=== PATIENT | male | born 1960 | race Caucasian/White ===

== ENCOUNTER 2017-01-10 14:13 | Inpatient (IN) | payer BC ==
[~2017-01-10] VITALS: Ht 180.3 cm; Wt 93.0 kg
[2017-01-10 14:59] LABS: BASOPHILS % (AUTO) 0.3 % (0.0-2.0); DIFF TOTAL % 100 %; EOSINOPHILS # (AUTO) 0.1 /CMM (0.0-0.7); EOSINOPHILS % (AUTO) 0.8 % (0.0-6.0); HEMATOCRIT 44 % (39-51); HEMOGLOBIN 14.2 g/dL (13.5-17.5); LYMPHOCYTES # (AUTO) 1.4 /CMM (0.8-4.8); LYMPHOCYTES % (AUTO) 13.3 % (20.0-44.0); MEAN CORPUSCULAR HEMOGLOBIN 28 PG (26.0-33.0); MEAN CORPUSCULAR HGB CONC 33 g/dl (31.0-36.0); MEAN CORPUSCULAR VOLUME 85 fL (80-96); MONOCYTES # (AUTO) 0.7 /CMM (0.1-1.30); NEUTROPHILS # (AUTO) 8.5 /CMM (1.8-8.9); NEUTROPHILS % (AUTO) 78.6 % (43.0-81.0); PLATELET COUNT (AUTO) 275 /CMM (150-450); RED BLOOD CELL COUNT(AUTO) 5.12 MIL/uL (4.5-6.0); WHITE BLOOD COUNT (AUTO) 10.7 K/uL (4.3-11.0)
[2017-01-10 15:14] LABS: ANION GAP 14 (5-14); CALCIUM, SERUM 9.1 mg/dL (8.5-10.1); CARBON DIOXIDE 27 mmol/L (21-32); CHLORIDE 101 mmol/L (98-107); CREATININE 1.1 mg/dL (0.6-1.3); GFR 69 mL/min (>60); GLUCOSE 124 mg/dL (74-106); POTASSIUM 4.4 mmol/L (3.5-5.1); SODIUM SERUM 138 mmol/L (136-145); UREA NITROGEN, BLOOD 17 mg/dL (7-18)
[2017-01-10 15:23] LABS: TROPONIN I < 0.017 ng/mL (0.00-0.056)
[2017-01-10 15:27] LABS: ALANINE AMINOTRANSFERASE 37 U/L (12-78); ALBUMIN 3.9 g/dL (3.4-5.0); ASPARTATE AMINOTRANSFERASE 21 U/L (15-37); BILIRUBIN,DIRECT 0.4 mg/dL (0.0-0.2); BILIRUBIN,TOTAL 1.9 mg/dL (0.2-1.0); INDIRECT BILIRUBIN 1.5 mg/dL (0.0-1.1); INR 1.17 (0.87-1.13); PROTHROMBIN TIME 12.3 SECS (9.5-12.7); TOTAL PROTEIN, SERUM 6.5 g/dL (6.4-8.2)
[2017-01-10] MEDS ORDERED: SPIR25TA4 PO (16:04)
[2017-01-10] MEDS ORDERED: CARV12.52 PO (16:04)
[2017-01-10] MEDS ORDERED: LISI10TA5 PO (16:04)
[2017-01-10] MEDS ORDERED: SOTA80TA PO (16:04)
[2017-01-10] MEDS ORDERED: MAGNESIUM HYDROXIDE 30 ML UDC PO PRN (17:30)
[2017-01-10] MEDS ORDERED: ACETAMINOPHEN 325 MG TABLET PO PRN (17:30)
[2017-01-10] MEDS ORDERED: ONDANSETRON HCL/PF 4 MG/2 ML VIAL IVP PRN (17:30)
[2017-01-10] MEDS ORDERED: MAG HYDROX/AL HYDROX/SIMETH 30 ML UDC PO PRN (17:30)
[2017-01-10 17:50] VITALS: BP 103/59
[2017-01-10] MEDS: ENOXAPARIN SODIUM 40 MG/0.4 ML DISP.SYRIN SQ SCH (18:28)
[2017-01-10 20:48] VITALS: BP 89/60
[2017-01-10 22:00] VITALS: BP 89/60
[2017-01-11] VITALS (9 sets, daily range): BP systolic 81–98; BP diastolic 50–84
[2017-01-11 06:51] LABS: CALCIUM, SERUM 8.8 mg/dL (8.5-10.1); CREATININE 1.1 mg/dL (0.6-1.3); PHOSPHORUS 4.6 mg/dL (2.5-4.9); POTASSIUM 4.4 mmol/L (3.5-5.1)
[2017-01-11 07:12] LABS: THYROID STIMULATING HORMONE 5.185 uIU/mL (0.358-3.74)
[2017-01-11 07:30] LABS: BASOPHILS % (AUTO) 0.5 % (0.0-2.0); DIFF TOTAL % 100 %; EOSINOPHILS # (AUTO) 0.1 /CMM (0.0-0.7); EOSINOPHILS % (AUTO) 1.5 % (0.0-6.0); HEMATOCRIT 42 % (39-51); HEMOGLOBIN 13.8 g/dL (13.5-17.5); LYMPHOCYTES # (AUTO) 2.2 /CMM (0.8-4.8); LYMPHOCYTES % (AUTO) 24.1 % (20.0-44.0); MEAN CORPUSCULAR HEMOGLOBIN 28 PG (26.0-33.0); MEAN CORPUSCULAR HGB CONC 33 g/dl (31.0-36.0); MEAN CORPUSCULAR VOLUME 84 fL (80-96); MONOCYTES # (AUTO) 0.8 /CMM (0.1-1.30); MONOCYTES % (AUTO) 8.8 % (2.0-12.0); NEUTROPHILS % (AUTO) 65.1 % (43.0-81.0); PLATELET COUNT (AUTO) 238 /CMM (150-450); RED BLOOD CELL COUNT(AUTO) 4.98 MIL/uL (4.5-6.0); WHITE BLOOD COUNT (AUTO) 9.3 K/uL (4.3-11.0)
[2017-01-11] MEDS: PANTOPRAZOLE 40 MG TABLET.DR PO SCH (09:12)
[2017-01-11] MEDS: SPIRONOLACTONE 25 MG TABLET PO SCH (09:13)
[2017-01-11] MEDS: LISINOPRIL (10MG) 10 MG TABLET PO SCH (09:13)
[2017-01-11] MEDS: SOTALOL HCL 80 MG TABLET PO SCH ×2 (09:14→17:00)
[2017-01-11] MEDS: CARVEDILOL 12.5 MG TABLET PO SCH ×2 (09:14→17:00)
[2017-01-11] MEDS ORDERED: FUROSEMIDE 20 MG/2 ML VIAL IV ONE (09:30)
[2017-01-11] MEDS: ENOXAPARIN SODIUM 40 MG/0.4 ML DISP.SYRIN SQ SCH (21:12)
[2017-01-12 00:37] VITALS: BP 99/47
[2017-01-12 04:08] VITALS: BP 85/53
[2017-01-12 06:45] VITALS: BP 86/65
[2017-01-12] MEDS: PANTOPRAZOLE 40 MG TABLET.DR PO SCH ×2 (07:04→08:18)
[2017-01-12 08:00] VITALS: BP 86/65
[2017-01-12] MEDS: LISINOPRIL (10MG) 10 MG TABLET PO SCH (08:18)
[2017-01-12 08:19] VITALS: BP 86/65
[2017-01-12] MEDS: SPIRONOLACTONE 25 MG TABLET PO SCH (08:19)
[2017-01-12] MEDS: CARVEDILOL 12.5 MG TABLET PO SCH (08:19)
[2017-01-12] MEDS: SOTALOL HCL 80 MG TABLET PO SCH (08:19)
== END 2017-01-12 10:45 | disposition home or self-care (01) | DRG 293 ==
LOC: ER 14:18 → TELE 17:15 → MED 01-12 09:56
PROVIDERS: ADMIT Nurse Practitioner Acute Care; ATTEND Nurse Practitioner Acute Care
DX: I11.0 Hypertensive heart disease with heart failure (principal); I50.23 Acute on chronic systolic (congestive) heart failure; I42.9 Cardiomyopathy, unspecified; I48.91 Unspecified atrial fibrillation; E66.9 Obesity, unspecified; Z87.891 Personal history of nicotine dependence; Z95.0 Presence of cardiac pacemaker; R14.0 Abdominal distension (gaseous); R79.89 Other specified abnormal findings of blood chemistry; Z68.28 Body mass index [BMI] 28.0-28.9, adult; T44.7X5A Adverse effect of beta-adrenoreceptor antagonists, initial encounter; Y92.009 Unspecified place in unspecified non-institutional (private) residence as the place of occurrence of the external cause
CPT/HCPCS: 36415; 71010-TC; 80048-TC; 80061-TC; 80076-TC; 83735-TC; 83880; 84100-TC; 84439-TC; 84443-TC; 84484-TC; 85025-TC; 85730-TC; 87081-TC; 93307-TC; A4606; J1650; J1940; Z7610

== ENCOUNTER 2022-07-04 10:06 | Emergency (ER) | payer BC, OTHER ==
[~2022-07-04] VITALS: Ht 180.3 cm; Wt 72.6 kg
[~2022-07-04 10:06] MED LIST: CARV12.52 PO; LISI10TA29 PO; SOTA80TA PO; SPIR25TA6 PO
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
--- NOTE | 2022-07-04 10:30 | NUR ---
DR VIDAL AT BEDSIDE FOR EVAL
[2022-07-04] MEDS ORDERED: LIDOCAINE 1%-EPI 1:100,000 20 ML VIAL ONE (10:33)
[2022-07-04] MEDS ORDERED: TDAP [DIPH/PERTUSSIS/TET] 0.5 ML VIAL IM ONE ×2 (10:41→11:00)
[2022-07-04] MEDS ORDERED: LIDOCAINE 1%-EPI 1:100,000 20 ML VIAL TP ONE (11:00)
--- NOTE | 2022-07-04 11:08 | NUR ---
PT TAKEN TO RADIOLOGY VIA [facility]
--- NOTE | 2022-07-04 11:18 | NUR ---
PT BACK FROM RADIOLOGY
[2022-07-04 12:04] VITALS: BP 125/70
--- NOTE | 2022-07-04 12:04 | NUR ---
Patient discharged to home in stable condition. Written and verbal after care instructions given. Patient verbalizes understanding of instruction.
== END 2022-07-04 12:05 | disposition home or self-care (01) ==
LOC: ER 10:12
DX: S01.81XA Laceration without foreign body of other part of head, initial encounter (principal); I11.0 Hypertensive heart disease with heart failure; I50.9 Heart failure, unspecified; Z98.890 Other specified postprocedural states; Z79.899 Other long term (current) drug therapy; V19.88XA Pedal cyclist (driver) (passenger) injured in other specified transport accidents, initial encounter; Y93.89 Activity, other specified; Y92.89 Other specified places as the place of occurrence of the external cause; Y99.8 Other external cause status
CPT/HCPCS: 12044; 99284; 70450; 90471; 90715; 73090; A6403; J3490